=== PATIENT | female | born 1960 | race Two or more races ===

== ENCOUNTER 2023-06-25 21:06 | Emergency (ER) | payer OTHER ==
[~2023-06-25] VITALS: Ht 157.5 cm; Wt 63.5 kg
[2023-06-25] MEDS ORDERED: IBUPROFEN 400 MG TABLET PO ONE (21:30)
[2023-06-25] MEDS ORDERED: IBUPROFEN 400 MG TABLET ONE (21:37)
[2023-06-25] MEDS ORDERED: IBUP-1957 PO (22:06)
[2023-06-25 23:00] VITALS: BP 152/73; TEMP 98.2; O2SAT 98
== END 2023-06-25 23:00 | disposition home or self-care (01) ==
LOC: ER 21:07
DX: M17.12 Unilateral primary osteoarthritis, left knee (principal); E11.9 Type 2 diabetes mellitus without complications; Z59.00 Homelessness unspecified; W18.30XA Fall on same level, unspecified, initial encounter; Y93.89 Activity, other specified; Y92.89 Other specified places as the place of occurrence of the external cause; Y99.8 Other external cause status
CPT/HCPCS: 73590-TC